=== PATIENT | female | born 2000 | race Hispanic/Latino ===

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

== ENCOUNTER 2025-07-10 08:12 | Emergency (ER) | payer SELFPAY ==
[~2025-07-10] VITALS: Ht 157.5 cm; Wt 62.6 kg
--- NOTE | 2025-07-10 08:49 | ERN ---
ED Note History of Present Illness Stated Complaint: FB IN EAR Chief Complaint: Foreignbody Ear Time Seen by MD: 08:16 Dictation: 24-year-old female with Q-tip in right ear cotton got stuck after cleaning out yesterday no pain. Allergies: Coded Allergies: No Known Drug Allergies (Unverified Allergy, Unknown, 10/03/19) Past Medical History Past Medical History: No Pertinent History Surgical History: None LMP: Jul 03, 2025 : 0 Review of System Dictation Constitutional: Negative for fever,chills, and weight loss Eyes: Negative for injury, pain,redness, and discharge ENT: Per HPI Cardiovascular: Negative for chest pain, palpitations, and edema Respiratory: Negative for shortness of breath, cough, and wheezing, Abdomen/GI: Negative for abdominal pain, nausea, vomiting, diarrhea, and constipation Back: Negative for injury and pain : Negative for injury, bleeding and discharge MS/Extremity: Negative for injury and deformity Initial Vital Sign VS Vital Signs Date Time Temp Pulse Resp B/P (MAP) Pulse Ox O2 Delivery O2 Flow Rate FiO2 07/10/25 08:13 98.4 98 18 119/78 97 Room Air 0 Physical Exam Dictation General: awake, alert, NAD Head/Face: Normocephalic, atraumatic Eyes: PERRL, EOMI, vision at baseline ENT: oral cavity clear, cotton and right ear canal Neck: Trachea midline, supple, no nuchal rigidity MS/Extremity: Pulses equal, no cyanosis, neurovascular intact, FROM Neuro: COAx4, GCS 15, strength 5/5, CN 2-12 intact, normal cerebellar exam, normal gait, Psych: Normal behavior, mood, and affect normal ED Course ED Course Vital Signs Date Time Temp Pulse Resp B/P (MAP) Pulse Ox O2 Delivery O2 Flow Rate FiO2 07/10/25 08:13 98.4 98 18 119/78 97 Room Air 0 Medical Decision Making MDM MDM: Differential diagnosis: Rationale: Tests considered and ordered secondary to shared decision making include: Previous outside records reviewed: Old ER visits. Risk of complication and/or morbidity or mortality of patient management: None Medications-Per medication reconciliation Need for hospitalization: Patient does not meet criteria for hospitalization. Need for emergency major/minor surgery: No There are no social concerns with this patient. Prescription drug management Prescriptions will include symptomatic care Patient's prior external medical records from other ER visits were reviewed by me as indicated. Prior testing and results from previous visits were reviewed. Prior tests were taken into account with medical decision making and resource utilization, independent historian/historians were used to obtain complete medical history. I independently interpreted the test that were performed, results were reviewed by me and considered findings on radiology if ordered. Medical management and examination interpretation discussions were had by me with other qualified healthcare professionals as indicated for the patient's care. Cotton foreign body removed from right ear with alligator forceps stable for discharge. Procedure Procedure Dictation: Removal foreign body object from right ear canal cotton from Q-tip, removed with alligator forceps, no trauma TM intact. DX & DISP Disposition: Discharge Departure Impression: Primary Impression: Foreign body in right ear, initial encounter Condition: Stable Referrals: EVIN GUY MD (PCP) MEME ALY MD Jul 10, 2025 08:49
[2025-07-10 08:56] VITALS: BP 123/73; PULSE 95; RESP 17; TEMP 98.4; O2SAT 96
== END 2025-07-10 09:02 | disposition home or self-care (01) ==
LOC: EDH 08:12
DX: T16.1XXA Foreign body in right ear, initial encounter (principal); W44.8XXA Other foreign body entering into or through a natural orifice, initial encounter; Y93.89 Activity, other specified; Y92.89 Other specified places as the place of occurrence of the external cause; Y99.8 Other external cause status
CPT/HCPCS: 69200; 99284